=== PATIENT | male | born 2000 | race Caucasian/White ===

== ENCOUNTER 2022-07-19 08:18 | Day surgery (SDC) | payer OTHER, MEDICAID ==
[2022-07-19] MEDS ORDERED: fentaNYL 50 mcg/mL 1 mL Vial ONE (09:55)
[2022-07-19] MEDS ORDERED: Sodium Chloride 0.9% 100 ML ONE (10:57)
[2022-07-19] MEDS ORDERED: CEFAZOLIN 2 GM VIAL ONE (10:57)
[2022-07-19] MEDS ORDERED: CEFAZOLIN 2 GM in Sodium Chloride 0.9% 100 ML IVPB SCH (11:00)
[2022-07-19] MEDS ORDERED: Midazolam HCl 2 mg/2 ml Vial ONE ×2 (11:17→12:01)
[2022-07-19] MEDS ORDERED: Famotidine/PF 20 mg/2ml Vial ONE (11:17)
[2022-07-19] MEDS ORDERED: Scopolamine 1.5 mg/72 hour Patch ONE (11:17)
[2022-07-19] MEDS ORDERED: HYDROmorphone 2 MG/ML VIAL ONE (12:02)
[2022-07-19] MEDS ORDERED: PROPOFOL 200 MG/20 ML VIAL ONE (12:10)
[2022-07-19] MEDS ORDERED: Dexamethasone 20 MG/5 ML VIAL ONE (12:10)
[2022-07-19] MEDS ORDERED: Ketorolac Tromethamine 30 MG/ML VIAL ONE (12:10)
[2022-07-19] MEDS ORDERED: Ondansetron PF 4 MG/2 ML Vial ONE (12:10)
[2022-07-19] MEDS ORDERED: Esmolol 100 MG/10 ML VIAL ONE (12:10)
[2022-07-19] MEDS ORDERED: Lidocaine 1% PF 5 ML VIAL ONE (12:10)
[2022-07-19] MEDS ORDERED: PROPOFOL 20 ML ONE ×2 (12:30→12:31)
[2022-07-19] MEDS ORDERED: Meperidine HCl/PF 25 MG/ML VIAL ONE (13:20)
[2022-07-19] MEDS ORDERED: Morphine 2 MG/ML VIAL ONE (14:01)
[2022-07-19] MEDS ORDERED: HYDROcodone/Acetaminophen 5/325 mg Tablet ONE (14:21)
== END 2022-07-19 15:29 | disposition home or self-care (01) ==
LOC: MERGE 08:18 → SDC 08:18
PROVIDERS: ATTEND Orthopaedic Surgery
PROC: 0QSR04Z Reposition Left Toe Phalanx with Internal Fixation Device, Open Approach (ICD-10-PCS; principal; 2022-07-19)
DX: S92.422B Displaced fracture of distal phalanx of left great toe, initial encounter for open fracture (principal); F17.200 Nicotine dependence, unspecified, uncomplicated; W20.8XXA Other cause of strike by thrown, projected or falling object, initial encounter
CPT/HCPCS: J1100; J1170; J1885; J2175; J2250; J2272; J2405; J2704; J3010; J3490; S0028